=== PATIENT | male | born 1995 | race Caucasian/White ===

== ENCOUNTER 2016-07-24 16:26 | Emergency (ER) | payer BC ==
[2016-07-24] MEDS ORDERED: Sodium Chloride 0.9% 10 ML Syringe FLUSH PRN (16:39)
[2016-07-24] MEDS ORDERED: Morphine 2 MG/ML Syringe IVPUSH ONE (16:39)
[2016-07-24 16:40] VITALS: BP 165/92
[2016-07-24] MEDS ORDERED: Sodium Chloride 0.9% 1,000 ML IV SCH (16:45)
--- NOTE | 2016-07-24 17:02 | EDM.PDOC ---
ED HPI GI/ABDOMINAL - General Chief Complaint: Abdominal Pain Stated Complaint: right upper quadrant pain Time Seen by Provider: 07/24/16 16:28 Source of Information: Reports: Patient History Limitations: Reports: No limitations - History of Present Illness INITIAL COMMENTS - FREE TEXT/NARRATIVE: Patient is a [employer] student, sent over from [place] due to right upper quadrant pain that started last night. No nausea, no vomiting. No chills, or fever. He states the pain started last night and is a stabbing sharp intermittent type pain. No medical history per his report when asked. No medication use. Occasional alcohol, no smoking. Symptom Onset Date: 07/23/16 Symptom Onset Time: 21:00 Location: [facility] Quality: Reports: stabbing Severity: moderate Associated Symptoms: Reports: denies other symptoms - Related Data Allergies/ADRs: Allergies Allergy/AdvReac Type Severity Reaction Status Date / Time No Known Allergies Allergy Verified 07/24/16 16:42 Home Meds: Home Meds . [No Known Home Meds] 11/15/13 [History] Past Medical History - Past Health History Medical/Surgical History: Denies Medical/Surgical History Social & Family History - Tobacco Use Smoking Status *Q: Never Smoker Second Hand Smoke Exposure: No - Recreational Drug Use Recreational Drug Use: No ED ROS GENERAL - Review of Systems Review Of Systems: ROS reveals no pertinent complaints other than HPI. ED EXAM, GI/ABD - Physical Exam Exam: See Below Exam Limited By: No limitations General Appearance: alert, WD/WN, no apparent distress Eyes: bilateral: EOMI Ears: normal TMs Nose: normal inspection, normal mucosa, no blood Throat/Mouth: Normal inspection, Normal lips, Normal teeth, Normal gums, Normal oropharynx, Normal voice, No airway compromise Head: atraumatic, normocephalic Neck: normal inspection, supple, non-tender, full range of motion Respiratory/Chest: no respiratory distress, lungs clear, normal breath sounds, no accessory muscle use, chest non-tender Cardiovascular: normal peripheral pulses, regular rate, rhythm, no edema GI/Abdominal: normal bowel sounds, no distention, no abnormal bruit, no mass, tenderness, psoas sign Rectal (Males) Exam: Normal exam Back Exam: normal inspection, full range of motion Extremities: normal inspection, normal capillary refill Neurological: alert, oriented, CN II-XII intact, normal cognition, normal reflexes, no motor/sensory deficits Psychiatric: normal affect, normal mood Skin Exam: Warm, Dry, Intact Lymphatic: no adenopathy Course - Vital Signs Last Recorded V/S: Last Vital Signs Temp 37.9 C 07/24/16 16:39 Pulse 86 07/24/16 16:39 Resp 16 07/24/16 16:39 BP 165/92 H 07/24/16 16:39 Pulse Ox 98 07/24/16 16:39 - Orders/Labs/Meds Orders: Active Orders 24 hr Category Date Time Status Abdomen Pelvis w Cont [CT] Stat Exams 07/24/16 16:39 Taken Sodium Chloride 0.9% [Normal Saline] 1,000 ml Med 07/24/16 16:45 Active IV ASDIRECTED Sodium Chloride 0.9% [Saline Flush] Med 07/24/16 16:39 Active 10 ml FLUSH ASDIRECTED PRN Saline Lock Insert [OM.PC] Routine Oth 07/24/16 16:39 Ordered Medication Orders Sodium Chloride (Normal Saline) 1,000 mls @ 999 mls/hr IV ASDIRECTED MAYRA Last Admin: 07/24/16 16:55 Dose: 999 mls/hr Sodium Chloride (Saline Flush) 10 ml FLUSH ASDIRECTED PRN PRN Reason: Keep Vein Open Labs: Laboratory Tests 07/24/16 07/24/16 Range/Units 16:49 16:49 WBC 7.1 (4.0-10.0) x10^3/uL RBC 5.59 (4.5-6.0) x10^6/uL Hgb 16.0 (14.0-18.0) g/dL Hct 44.3 (40.0-52.0) % MCV 79.2 (78.0-93.0) fL MCH 28.6 (26.0-32.0) pg MCHC 36.1 H (32.0-36.0) g/dL RDW Coeff of Johana 12.8 (10.0-15.0) % Plt Count 216 (130-400) x10^3/uL Neut % (Auto) 63.5 (50.0-80.0) % Lymph % (Auto) 27.6 (25.0-50.0) % [place] % (Auto) 7.0 (2.0-11.0) % Eos % (Auto) 1.3 (0.0-4.0) % Baso % (Auto) 0.6 (0.2-1.2) % Sodium 144 (136-145) mmol/L Potassium 3.8 (3.5-5.1) mmol/L Chloride 104 (98-107) mmol/L Carbon Dioxide 31 (21-32) mmol/L BUN 18 (7-18) mg/dL Creatinine 1.0 (0.70-1.30) mg/dL Est Cr Clr Drug Dosing TNP Estimated GFR (MDRD) > 60 Glucose 97 (74-106) mg/dL Calcium 9.2 (8.5-10.1) mg/dL Corrected Calcium 8.80 (8.5-10.1) mg/dL Total Bilirubin 0.4 (0.2-1.0) mg/dL AST 11 L (15-37) U/L ALT 24 (16-63) U/L Alkaline Phosphatase 87 (46-116) U/L C-Reactive Protein < 0.2 (<=0.9) mg/dL Total Protein 7.5 (6.4-8.2) g/dL Albumin 4.5 (3.4-5.0) g/dL Globulin 3.0 Albumin/Globulin Ratio 1.50 Amylase 33 (25-115) U/L Lipase 88 (73-393) U/L Meds: Medications Generic Name Dose Route Start Last Admin Trade Name Freq PRN Reason Stop Dose Admin Sodium Chloride 1,000 mls @ 999 mls/hr 07/24/16 16:45 07/24/16 16:55 Normal Saline IV 999 mls/hr ASDIRECTED MAYRA Administration Sodium Chloride 10 ml 07/24/16 16:39 Saline Flush FLUSH ASDIRECTED PRN Keep Vein Open Discontinued Medications Generic Name Dose Route Start Last Admin Trade Name Freq PRN Reason Stop Dose Admin Morphine Sulfate 2 mg 07/24/16 16:39 07/24/16 16:56 Morphine IVPUSH 07/24/16 16:40 2 mg ONETIME ONE Administration Departure - Departure Time of Disposition: 18:24 Disposition: Home, Self-Care 01 Condition: good Clinical Impression: Abdominal pain, Viral gastroenteritis Instructions: Abdominal Pain, Adult, [id number], Viral Gastroenteritis, Adult , [id number] Forms: ED Department Discharge Additional Instructions: Abdominal CT did not show any cause for your acute abdominal pain. Likely a viral illness, or some slight inflammation of the abdominal lymph nodes that were visible. Make sure to drink plenty of water and stay hydrated. Viral stomach illnesses have been very common of late, you may continue to have more illness over the next 3-5 days. Please follow up with your primary doctor as needed Call with any questions or concerns - Problem List & Annotations (1) Abdominal pain SNOMED Code(s): 23363901 Code(s): R10.9 - UNSPECIFIED ABDOMINAL PAIN Status: Acute Priority: Low Current Visit: Yes Qualifiers: Abdominal location: right upper quadrant Qualified Code(s): R10.11 - Right upper quadrant pain (2) Viral gastroenteritis SNOMED Code(s): 271767948 Code(s): A08.4 - VIRAL INTESTINAL INFECTION, UNSPECIFIED Status: Acute Priority: Low Current Visit: Yes - Problem List Review Problem List Initiated/Reviewed/Updated: Yes - My Orders Last 24 Hours: My Active Orders 07/24/16 16:39 Abdomen Pelvis w Cont [CT] Stat Sodium Chloride 0.9% [Saline Flush] 10 ml FLUSH ASDIRECTED PRN Saline Lock Insert [OM.PC] Routine 07/24/16 16:45 Sodium Chloride 0.9% [Normal Saline] 1,000 ml IV ASDIRECTED - Assessment/Plan Last 24 Hours: My Active Orders 07/24/16 16:39 Abdomen Pelvis w Cont [CT] Stat Sodium Chloride 0.9% [Saline Flush] 10 ml FLUSH ASDIRECTED PRN Saline Lock Insert [OM.PC] Routine 07/24/16 16:45 Sodium Chloride 0.9% [Normal Saline] 1,000 ml IV ASDIRECTED Assessment:: abdominal pain Plan: Abdominal CT did not show any cause for your acute abdominal pain. Likely a viral illness, or some slight inflammation of the abdominal lymph nodes that were visible. Make sure to drink plenty of water and stay hydrated. Viral stomach illnesses have been very common of late, you may continue to have more illness over the next 3-5 days. Please follow up with your primary doctor as needed Call with any questions or concerns
[2016-07-24 17:15] LABS: CHLORIDE,CL 104 mmol/L (98-107); SODIUM,NA 144 mmol/L (136-145)
== END 2016-07-24 18:33 | disposition home or self-care (01) ==
LOC: VM.ED 16:26
DX: A08.4 Viral intestinal infection, unspecified (principal)
CPT/HCPCS: 74177; 80053; 82150; 83690; 85025; 86140; 96361; 96374; 99284; J2270; J7030